=== PATIENT | male | born 1985 | race Caucasian/White ===

== ENCOUNTER 2018-07-24 17:29 | Emergency (ER) | payer OTHER ==
[2018-07-24 18:00] VITALS: O2SAT 98
[2018-07-24] MEDS ORDERED: Sodium Chloride 0.9% 1,000 ML IV ONE (18:39)
--- NOTE | 2018-07-24 18:39 | ED PDOC ---
HPI: Back Time Seen by Provider: 07/24/18 18:24 Chief Complaint (Nursing): Back Pain Chief Complaint (Provider): Back Pain History Per: Patient, Family () History/Exam Limitations: no limitations Onset/Duration Of Symptoms: Days Current Symptoms Are (Timing): Still Present Additional Complaint(s): Patient is a 32 y/o male with no significant PMHx who presents to the ED for evaluation of left lower back pain for the past couple of days. Patient also complains of groin pain and pain towards the end of urination. Patient states the pain comes in waves. Patient has been taking Motrin and Tylenol with minimal relief. PCP: None Provided Past Medical History Reviewed: Historical Data, Nursing Documentation, Vital Signs Vital Signs: Last Vital Signs Temp 97.9 F 07/24/18 17:56 Pulse 76 07/24/18 17:56 Resp 20 07/24/18 17:56 BP 108/70 07/24/18 17:56 Pulse Ox 98 07/24/18 17:56 - Medical History PMH: No Chronic Diseases - Surgical History Surgical History: No Surg Hx - Family History Family History: States: No Known Family Hx - Home Medications Home Medications: Ambulatory Orders Medication Instructions Recorded Cephalexin [Keflex] 1 cap PO QID #28 capsule 07/24/18 Tamsulosin HCl [Flomax] 0.4 mg PO DAILY #30 cap.er.24h 07/24/18 oxyCODONE/Acetaminophen [Percocet 1 ea PO QID #16 tab 07/24/18 5/325 mg Tab] - Allergies Allergies/Adverse Reactions: Allergies Allergy/AdvReac Type Severity Reaction Status Date / Time No Known Allergies Allergy Verified 07/24/18 17:55 Review of Systems ROS Statement: Except As Marked, All Systems Reviewed And Found Negative Genitourinary Male: Positive for: Penile Pain (towards the end of urination) Musculoskeletal: Positive for: Back Pain (left lower), Other (groin pain) Physical Exam - Reviewed Nursing Documentation Reviewed: Yes Vital Signs Reviewed: Yes - Physical Exam Appears: Positive for: No Acute Distress Head Exam: Positive for: ATRAUMATIC, NORMAL INSPECTION, NORMOCEPHALIC Skin: Positive for: Normal Color, Warm, DRY Eye Exam: Positive for: EOMI, Normal appearance, PERRL Neck: Positive for: Normal, Painless ROM, Supple Cardiovascular/Chest: Positive for: Regular Rate, Rhythm. Negative for: Murmur Respiratory: Positive for: Normal Breath Sounds. Negative for: Respiratory Distress Gastrointestinal/Abdominal: Positive for: Normal Exam, Soft. Negative for: Tenderness Back: Positive for: Normal Inspection, L CVA Tenderness Extremity: Positive for: Normal ROM. Negative for: Pedal Edema, Deformity Neurological/Psych: Positive for: Alert, Oriented (x3) - Laboratory Results Result Diagrams: 07/24/18 18:10 07/24/18 18:10 - ECG O2 Sat by Pulse Oximetry: 98 (RA) Pulse Ox Interpretation: Normal Medical Decision Making Medical Decision Making: Time: 1826 Impression: Left Lower Back Problem; r/o Renal Lithiasis Plan: CT Abd & pelvis w/o PO or IV Contrast CMP Lipase CBC UA Time: 1903 FINDINGS: LUNG BASES: The lung bases appear clear. No pleural effusions are seen. LIVER: Unremarkable. GALLBLADDER AND BILE DUCTS: The gallbladder appears within normal limits. No radioopaque gallstones are seen. No biliary ductal dilatation is evident. PANCREAS: Unremarkable. SPLEEN: Unremarkable. ADRENAL GLANDS: Unremarkable. KIDNEYS, URETERS, AND BLADDER: There are numerous subcentimeter nonobstructing calculi present within both kidneys largest within the left kidney measuring approximately 6 mm. There is an extrarenal pelvis left kidney. STOMACH AND BOWEL: Unremarkable appearance of the stomach and bowel. No evidence of bowel obstruction. No evidence suggesting enteritis or colitis. APPENDIX: No evidence of acute appendicitis on CT examination. PERITONEUM: No free fluid. No free air. LYMPH NODES: No lymphadenopathy is evident. REPRODUCTIVE: Unremarkable as visualized. VASCULATURE: No evidence of abdominal aortic aneurysm. BONES: No aggressive appearing osseous lesion. No acute osseous pathology evident. IMPRESSION: No acute intra-abdominal or pelvic abnormality. Numerous subcentimeter renal calculi bilaterally most prominent calculus measuring 6 mm within the left kidney. Left extrarenal pelvis. Clinical correlation advised. Electronically signed on Jul 24, 2018 7:04:38 PM EDT by: Fitz Rizzo M.D., Certified by [facility], Diagnostic Radiology Time: 1929 Put in urology consult. Time: 1939 Urologist advised 0.4 mg Flomax. Will start on 0.8 mg in ED. Patient will go home with a hat, antibiotics, Tamiflu, and Percocet. Scribe Attestation: Documented by Can Gray, acting as a scribe forNavjot Ramírez PA-C Provider Scribe Attestation: All medical record entries made by the Scribe were at my direction and personally dictated by me. I have reviewed the chart and agree that the record accurately reflects my personal performance of the history, physical exam, [facility] decision making, and the department course for this patient. I have also personally directed, reviewed, and agree with the discharge instructions and disposition. Disposition - Clinical Impression Clinical Impression: Renal stones - Disposition Referrals: Neto Curtis MD [Staff Provider] - Disposition: Routine/Home Disposition Time: 21:05 Condition: STABLE Prescriptions: Cephalexin [Keflex] 1 cap PO QID #28 capsule oxyCODONE/Acetaminophen [Percocet 5/325 mg Tab] 1 ea PO QID #16 tab Tamsulosin HCl [Flomax] 0.4 mg PO DAILY #30 cap.er.24h Instructions: Kidney Stones in Adults, Kidney Stones (DC), How to Strain Your Urine, Kidney Stone Diet Forms: [employer] (Indonesian)
[2018-07-24 18:44] LABS: BASO % 0.3 % (0.0-2.0); EOS # 0.1 K/uL (0.0-0.7); EOS % 0.8 % (0.0-4.0); HEMOGLOBIN 13.6 g/dL (12.0-18.0); LYMPH # 2.5 K/uL (1.0-4.3); LYMPH % 32.4 % (20.0-40.0); MEAN CELL VOLUME 88.4 fl (80.0-94.0); MEAN CORPUSCULAR HGB CONC 33.9 g/dL (33.0-37.0); MEAN PLATELET VOLUME 7.9 fl (7.2-11.7); MONO # 0.6 K/uL (0.0-0.8); MONO % 7.6 % (0.0-10.0); NEUT # 4.5 K/uL (1.8-7.0); NEUT % 58.9 % (50.0-75.0); NRBC % 0.1 % (0.0-0.0); RBC 4.56 Mil/uL (4.40-5.90); RED CELL DISTRIBUTION WIDTH 13.1 % (11.5-14.5); WHITE BLOOD COUNT 7.6 K/uL (4.8-10.8)
[2018-07-24 18:47] LABS: URINE BACTERIA RARE (<OCC); URINE BILIRUBIN NEGATIVE (NEGATIVE); URINE BLOOD LARGE (NEGATIVE); URINE CLARITY CLEAR (Clear); URINE COLOR AMBER (YELLOW); URINE GLUCOSE (UA) NEG (NEGATIVE); URINE LEUKOCYTE ESTERASE NEG Leu/uL (Negative); URINE PROTEIN NEGATIVE (NEGATIVE)
[2018-07-24 18:54] LABS: ALB/GLOB RATIO 1.5 (1.0-2.1); ALBUMIN 4.5 g/dL (3.5-5.0); ALT/SGPT 29 U/L (21-72); AST/SGOT 33 U/L (17-59); BLOOD UREA NITROGEN 12 mg/dl (9-20); CALCIUM 9.7 mg/dL (8.4-10.2); GFR NON-AFRICAN AMERICAN > 60; LIPASE 131 U/L (23-300)
[2018-07-24] MEDS ORDERED: Morphine 4 MG/ML VIAL IVP ONE (19:14)
[2018-07-24] MEDS ORDERED: Morphine 4 MG/ML VIAL ONE (19:20)
[2018-07-24] MEDS ORDERED: cefTRIAXone (Rocephin) 1 gm Inj ONE (20:00)
[2018-07-24 21:07] VITALS: BP 122/86; PULSE 87; RESP 18; TEMP 98.1
--- NOTE | 2018-07-25 12:34 | CT ---
Date of service: 07/24/2018 PROCEDURE: CT abdomen and pelvis HISTORY: Rule out stones COMPARISON: None. TECHNIQUE: Contiguous axial images of the abdomen and pelvis performed without oral or intravenous contrast material. Additional 2D sagittal and coronal reformats generated. Radiation dose: Total exam DLP = 432.12 mGy-cm. This CT exam was performed using one or more of the following dose reduction techniques: Automated exposure control, adjustment of the mA and/or kV according to patient size, and/or use of iterative reconstruction technique. FINDINGS: LOWER THORAX: Heart size within range of normal. No significant pericardial effusion. Lung bases clear without effusion or pneumothorax. LIVER: Unremarkable. No gross lesion or ductal dilatation. GALLBLADDER AND BILE DUCTS: Unremarkable. PANCREAS: Unremarkable. No mass. No ductal dilatation. SPLEEN: Unremarkable. No splenomegaly. ADRENALS: Unremarkable. No adrenal lesions. KIDNEYS AND URETERS: There are multiple small bilateral renal calculi the largest in the right upper pole on collecting system measuring approximately 3.8 cm and largest in the left upper pole collecting system measuring approximately 4.4 cm.. No definitive evidence of hydronephrosis although there is slight prominence of the left renal pelvis which appears to be partially extrarenal in location. BLADDER: Urinary bladder incompletely distended which in part accounts for thick-walled appearance. Muscular hypertrophy may contribute. Cystitis or other intrinsic/invasive wall lesion not excluded. Recommend correlation with urinalysis. No evidence of intraluminal urinary bladder calculi. REPRODUCTIVE: Unremarkable as visualized APPENDIX: What a probably represents normal appendix is best seen on axial image number [id number]. No evidence of acute appendicitis. No evidence of acute appendicitis. BOWEL: There is a relatively large amount of stool seen throughout the colon consistent with fecal retention/constipation.. PERITONEUM: Unremarkable. No fluid collection. No free air. Small fat containing umbilical hernia. LYMPH NODES: Unremarkable. No enlarged lymph nodes. VASCULATURE: Unremarkable. No aortic aneurysm. No aortic atherosclerotic calcification or mural plaque present. BONES: No fracture or destructive lesion. OTHER FINDINGS: None. IMPRESSION: There are multiple small bilateral renal calculi the largest on the right measuring approximately 3.8 mm and on the left measuring approximately 4.4 cm Constipation.. No evidence of acute appendicitis
== END 2018-07-24 21:10 | disposition home or self-care (01) ==
LOC: H.ER 17:29
DX: N20.0 Calculus of kidney (principal)
CPT/HCPCS: 74176; 80053; 81003; 83690; 85025; 96361; 96365; 96375; 99283; J0696; J2270; J2405; J7030